=== PATIENT | female | born 1955 ===

== ENCOUNTER 2023-07-22 11:23 | Outpatient (CLI) | payer MEDICARE, OTHER, SELFPAY ==
--- NOTE | 2023-07-22 11:31 | CT_ITS ---
WS: [id number] CT CALCIUM SCORE REASON FOR VISIT: CHF/DIASTOLIC DYSFUNCTION/ANGINA; Coronary artery disease risk assessment COMPARISON: None TECHNIQUE: Noncontrast coronary CT in combination with quantitative analysis performed on a separate workstation were used to determine CACS (Agatston score) TOTAL EXAM DOSE: 62.51 mGy.cm ECG GATING: Prospective SCAN RANGE: Pulmonary artery bifurcation to Inferior aspect of heart COMPLICATIONS: None FINDINGS: Technical Quality/Examination Quality: Good Limitaiton: None OVERALL SCORES Total calcium score: 9 Total volume score: 26 mm3 Percentile: 25-50% ARTERY SCORES Left main coronary artery: 3 Left anterior descending artery: 1 Left circumflex artery: 1 Right coronary artery: 2 Posterior descending artery 2 OTHER FINDINGS: Partially visualized breast prosthesis. Mediastinum: Prominent main pulmonary arteries can be seen with pulmonary arterial hypertension. Thoracic aorta: Normal. Lungs: Slight atelectasis in the lingula. Lungs are incompletely visualized. Upper Abdomen: Normal. MINIMAL: 1-10 MILD: 11-100 MODERATE: 101-400 SEVERE:>400 CT/CT heart w calcium score 02306 IMPRESSION: 1. Total calcium score of 9 between the 25th and 50th percentile for females b etween the ages of 65 and 69. 2. Total calcium score of 9 corresponds to minimal coronary artery disease. GRADING OF CORONARY ARTERY DISEASE (BASED ON TOTAL CALCIUM SCORE) NO EVIDENCE OF CAD: 0 calcium score
== END 2023-07-22 11:24 | disposition home or self-care (01) ==
LOC: RAD 11:23
PROVIDERS: Family Provider Family Medicine; Visit Provider Family Medicine
DX: I50.9 Heart failure, unspecified (principal); I51.9 Heart disease, unspecified; I20.9 Angina pectoris, unspecified
CPT/HCPCS: 75571